=== PATIENT | female | born 1985 | race Two or more races ===

== ENCOUNTER 2025-05-06 14:00 | Outpatient (CLI) | payer MEDICAID ==
--- NOTE | 2025-05-06 19:03 | RADIOLOGY REPORT ---
EXAM: CT CT UPPER EXTREMITIES HISTORY: PAIN L HAND COMPARISON: None TECHNIQUE: Axial images were obtained of the left wrist and reformatted in coronal and sagittal plane s. All CT scans at this medical facility are performed using dose modulation techniques as appropriate t o a performed exam including the following: Automated exposure control was utilized; adjustment of th e MA and/or KV according to patient size; and use of iterative reconstruction technique. CT Dose: CTDI volume is 0.21+ 14.36 mGy. Dose-length product is 175.2 mGy*cm FINDINGS: There is increased density/ sclerosis of the lunate with subchondral lucencies along the proximal as pect /early collapse and fragmentation. There is some volume loss of the lunate. Normal mineralizatio n and alignment. Mild degenerative change of the radiocarpal joint. No acute fracture. Overlying soft tissues are intact. The visualized tendons and ligaments are grossly intact although not optimally e valuated by CT. The Muscle bundles are intact. No fluid collection or soft tissue gas. IMPRESSION: Findings compatible with kienbock disease.
== END 2025-05-06 23:00 | disposition home or self-care (01) ==
LOC: RAD 14:00
PROVIDERS: ATTEND Pediatrics Sports Medicine
DX: M19.042 Primary osteoarthritis, left hand (principal); M79.642 Pain in left hand
CPT/HCPCS: 73200